=== PATIENT | male | born 1955 | race Caucasian/White ===

== ENCOUNTER 2018-03-29 06:50 | Observation (INO) ==
--- NOTE | 2018-03-24 17:18 | MH ---
cc: Maryuri See MD DATE OF ADMISSION: 03/29/2018 DATE OF ADMISSION: 03/29/2018 ADMITTING DIAGNOSIS: Osteoarthritic degeneration, right knee, now being admitted for right total knee arthroplasty. HISTORY OF PRESENT ILLNESS: This pleasant 64-year-old male is being admitted today for right total knee arthroplasty due to severe painful osteoarthritic degeneration of the right knee. PAST MEDICAL HISTORY: The patient has a history of back pain and essential hypertension. CURRENT MEDICATIONS: 1. Amlodipine. 2. Baclofen. 3. Diclofenac, stop before surgery. 4. Lasix. 5. Methotrexate. PAST SURGICAL HISTORY: Hernia repair, appendectomy, arthroscopic surgery of right knee. REVIEW OF SYSTEMS: Noncontributory. FAMILY HISTORY: Noncontributory. SOCIAL HISTORY: Does not smoke or drink. ALLERGIES: NO KNOWN ALLERGIES. PHYSICAL EXAMINATION: GENERAL: A 64-year-old male, well-developed, well-nourished, alert and oriented x3, complaining of pain in his right knee. VITAL SIGNS: Blood pressure 126/78, pulse 90 and regular, respirations 18, temperature 98.2, pulse oximetry 98% on room air. EYES: PERRL, EOMI. Ears, nose, mouth clear. NECK: Supple. LUNGS: Clear. HEART: Regular rate. ABDOMEN: Soft, positive bowel sounds, nontender. EXTREMITIES: Reveal the right knee be tender with crepitance on range of motion. He is neurovascularly intact to his toes. IMPRESSION: Severe painful osteoarthritic degeneration, right knee. PLAN: Admission for right total knee arthroplasty today. The patient was given prescription for postoperative pain and anticoagulation control. Plans on going home after surgical stay in the hospital. He did have an injection of hannah freezing nerve block done in the office today. MD PHONG Frias/vale , 04:06 PM , 04:12 PM
[2018-03-29] MEDS ORDERED: Metoprolol Tartrate 25 MG Tablet PO SCH (07:25)
[2018-03-29] MEDS ORDERED: Chlorhexidine Gluconate 2% 1 Pack (2 Cloths) TOPICAL SCH (07:25)
[2018-03-29] MEDS ORDERED: Chlorhexidine 4% Topical 120 APPLIC/120 ML Bottle TOPICAL SCH (07:30)
[2018-03-29] MEDS ORDERED: Vancomycin Inj 1,000 MG in Sodium Chlor 0.9% Inj 250 ML IV.SIG SCH (08:00)
[2018-03-29] MEDS ORDERED: Sodium Chlor 0.9% Inj 500 ML IV.SIG SCH (08:00)
[2018-03-29] MEDS ORDERED: ceFAZolin 2 GM Premix Inj 2 GM/50 ML PIGGYBACK IV.SIG SCH (08:00)
[2018-03-29] MEDS ORDERED: TRANEXAMIC ACID IV.SIG SCH (09:00)
[2018-03-29] MEDS ORDERED: Sodium Chlor 0.9% Inj 80 ML, Bupivacaine Liposo PF 1.3% Inj 20 ML, Bupivacaine 0.25% In... P-ARTICULR SCH ×3 (09:00)
[2018-03-29] MEDS ORDERED: SODIUM CHLOR 0.9% IV.SIG SCH (09:00)
[2018-03-29] MEDS ORDERED: Post-op Orders (for Pharmacy) OTHER STA (09:25)
[2018-03-29] MEDS ORDERED: Bisacodyl 10 MG Supp RECTAL PRN (09:25)
[2018-03-29] MEDS ORDERED: Lidocaine PF 1% Inj 5 ML Syringe OTHER ONE (10:09)
[2018-03-29] MEDS ORDERED: Phenylephrine/NS 1000 MCG/10ML Syringe IV.PUSH ONE (10:09)
[2018-03-29] MEDS ORDERED: ceFAZolin 2 GM Premix Inj 2 GM/50 ML PIGGYBACK IV.SIG ONE (11:30)
[2018-03-29] MEDS ORDERED: Tranexamic Acid Inj 1,000 MG in Sodium Chlor 0.9% Inj 100 ML IV.SIG SCH (12:00)
[2018-03-29] MEDS ORDERED: fentaNYL Citrate Inj 100 MCG/2 ML Ampul ONE (13:06)
--- NOTE | 2018-03-29 13:27 | MP ---
cc: Maryuri See MD DATE OF OPERATION: 03/29/2018 PREOPERATIVE DIAGNOSIS: Severe osteoarthritic degeneration, right knee. POSTOPERATIVE DIAGNOSIS: Severe osteoarthritic degeneration, right knee. PROCEDURE PERFORMED: Right total knee arthroplasty using Consensus components, size 5 femur, 4 tibia, 10 insert and size 2 patella with 2 batches of antibiotic cement. SURGEON: Maryuri See MD FARM WORKER: JOSETTE Guerrero ANESTHESIA: General intubation and block. DESCRIPTION OF PROCEDURE: After successful induction of anesthesia, the patient is placed on the operating room table in the supine position. The knee is prepped and draped in the usual manner. A tourniquet is inflated at the upper thigh and set to 300 mmHg pressure after exsanguination of the lower extremity. A longitudinal incision is made extending from 3 inches proximal to the superior pole of the patella, across the patella in longitudinal fashion, and down past the insertion of the tibial tubercle into the proximal tibia. The incision is carried down through subcutaneous tissue along the medial aspect of the patella and retinaculum, down through the capsule to expose the knee joint. The patella and patellar tendon are freed up enough to allow the patella to be inverted and retracted off the lateral side of the knee joint. The knee joint is left exposed. Small osteophytes are removed. All soft tissue is removed to allow proper position of the femoral and tibial cutting jig guide. The first femoral jig is then inserted along the distal end of the femur after first measuring to decide whether this is a small, medium, or large component. The notch is then drilled and the tibial cutting guide inserted into the femoral cutting guide, along with the ankle brace to allow for proper measurement of the tibial cutting surface that needed to be resected. Pins are inserted into the tibial cutting jig and femoral cutting jig to hold them in place. An oscillating saw is then used to resect the surface of the tibia. The surface of the tibia is then completely removed using sharp and blunt dissection. The anterior and posterior cuts of the femur are then made as well using an oscillating saw through the cutting guide. All guides are then removed and the varus/valgus angulation cutting guide applied to the femur for proper measurement of the proper amount of valgus. The anterior cutting guide for the femur is then inserted at the anterior femoral cuts made. Next, the first block trial is inserted into the femur to allow for proper condyle drill holes to be made which are then made followed by removal of the bone between the condyles using an oscillating saw as well as the bone removed at the most posterior surface of the condyle. After this, this guide is removed and the chamfer cuts made using the chamfer cutting guide from both anterior and posterior. Next, the femoral trial is then inserted, the tibial surface reflected anterior to expose the tibial surface and a tibial stem guide is inserted after first measuring for a standard, standard plus, large, or large plus surface to be used. After the stem is impacted the trial tibial surface is applied followed by the trial meniscal components. After full range of motion is found with the appropriate length meniscal components varying the patella is prepared by resecting the posterior aspect of the patella using an oscillating saw, inserting a trial. The trial is then removed and the cruciate cutting guide applied using the bur to cut the cruciate cuts. After cruciate cuts are made all trials are removed. The wound is irrigated copiously with antibiotic solution and Water Pik and the actual components inserted into place using the aforementioned components. After the cement has hardened and the components are found to have full range of motion with no instability, the tourniquet is deflated, total tourniquet time being 50 minutes at 300 mmHg pressure. The wound again is irrigated copiously with antibiotic solution, meticulous hemostasis achieved using a batch of FloSeal with thrombin The deep fascia approximated with running #0 Quill and the subcutaneous tissue approximated using interrupted running 2-0 and 3-0 Quill and Prineo dressing. No drain utilized. ESTIMATED BLOOD LOSS: 200 mL. COUNTS: Sponge and suture counts were correct. COMPONENTS: The components used were Consensus components, size 5 femur, 4 tibia, 10 insert and size 2 patella with 2 batches of antibiotic cement. The patient tolerated the procedure well and left the operating room in stable condition. JOSETTE Guerrero, was present throughout the procedure to include patient positioning as well as the procedure. The medical necessity of the nurse practitioner was indicated in this case due to the surgical complexity of the case itself. During the case, the medical or surgical instrument maker was working the back table while my surgical assist OUTSIDE SALES INSPECTOR was directly assisting me. J. MD PHONG Ramsay/jl , 12:30 PM , 12:38 PM
[2018-03-29] MEDS ORDERED: *morphine SULFATE 8 MG/ML PERIprocedure ONLY ONE ×2 (13:28→13:57)
--- NOTE | 2018-03-29 14:07 | XR ---
EXAM DATE: 03/29/2018 1:52 PM EST AGE/SEX: 63 years / Male INDICATIONS: Post op right knee. CLINICAL DATA: This is the patient's initial encounter. Patient reports that signs and symptoms have been present for 1 day and indicates a pain score of Nonresponsive. MEDICAL/SURGICAL HISTORY: None. None. COMPARISON: No prior exams available for comparison. FINDINGS: Views of the right knee are obtained. Postsurgical changes with right knee arthroplasty. Screws seen traversing the proximal tibia. No hardware loosening or fracture. Postsurgical changes. CONCLUSION: Right knee arthroplasty. Electronically signed by: Chalino Eng MD 03/29/2018 2:05 PM EST
--- NOTE | 2018-03-29 16:39 | P.BOP ---
- Preoperative Diagnosis (1) Osteoarthritis of right knee - Postoperative Diagnosis (1) Status post total right knee replacement using cement Date of procedure: 03/29/18 Procedure: Right Total knee Arthroplasty Implants: see implant record Anesthesia: GETA Surgeon: Faith See MD Flexible Nanny: Zainab Charles Estimated blood loss (mL): 200 Tourniquet time (min): 52 Urine output (mL): 0 (no jara) Pathology: none sent Condition: stable Disposition: PACU
[2018-03-29] MEDS: ceFAZolin 1 GM Premix Inj 1 GM/50 ML FROZ.PIGGY IV.SIG SCH ×2 (18:20→23:22)
[2018-03-29] MEDS ORDERED: TIMOLOL EACH EYE SCH (21:00)
[2018-03-29] MEDS ORDERED: BRIMONIDINE EACH EYE SCH (21:00)
[2018-03-29] MEDS: Senna/Docusate Sodium 8.6/50 MG Tablet PO SCH (21:01)
[2018-03-29] MEDS: Multivitamin/Minerals Therapeutic Tablet PO SCH (21:02)
[2018-03-30] MEDS: Morphine Inj 4 MG/ML Vial IV.PUSH PRN ×3 (02:05→20:39)
[2018-03-30] MEDS: ceFAZolin 1 GM Premix Inj 1 GM/50 ML FROZ.PIGGY IV.SIG SCH (04:48)
[2018-03-30 08:10] LABS: Hematocrit 35.7 % (39.0-51.0); Hemoglobin 12.2 gm/dL (13.0-17.0)
--- NOTE | 2018-03-30 08:26 | P.PNOP ---
Subjective Interval history: Patient complaining of burning pain about lateral side of kneecap. Physical Exam Vital signs: Vital Signs 03/29/18 09:36 03/29/18 13:01 03/29/18 13:15 Temperature 97.5 F L Pulse Rate 63 79 84 Respiratory Rate 18 15 14 Blood Pressure 117/65 108/52 L 116/56 L Pulse Oximetry 100 93 L 96 03/29/18 13:30 03/29/18 13:45 03/29/18 14:00 Temperature Pulse Rate 78 78 78 Respiratory Rate 15 12 14 Blood Pressure 107/53 L 104/55 L 105/58 L Pulse Oximetry 98 99 93 L 03/29/18 14:30 03/29/18 15:05 03/29/18 20:00 Temperature 98.6 F 97.2 F L Pulse Rate 75 74 73 Respiratory Rate 12 16 18 Blood Pressure 106/55 L 105/53 L 138/72 Pulse Oximetry 97 96 99 03/30/18 00:00 03/30/18 01:00 03/30/18 04:00 Temperature 97.9 F 98.9 F Pulse Rate 82 83 Respiratory Rate 17 17 18 Blood Pressure 143/68 H 153/68 H Pulse Oximetry 98 98 Intake & Output 03/29/18 03/30/18 03/30/18 18:59 06:59 18:59 Intake Total 1971.79 / 1971.79 1100 / 1100 Output Total 800 / 800 1450 / 1450 Balance 1171.79 / 1171.79 -350 / -350 Weight 117.9 kg 136.2 kg Intake: IV 571.79 / 571.79 1100 / 1100 LR 1000 mL Inj 1,000 ML @ 80 1000 / 1000 mls/hr IV.CONT .[id number] [facility] Rx# :[id number] Cyklokapron Inj 1,000 MG In NS 221.79 / 221.79 Inj 100 ML @ 200 mls/hr IV.SIG ONCE [facility] Rx#:[id number] Vancomycin Inj 1,000 MG In NS 250 / 250 Inj 250 ML @ 250 mls/hr IV.SIG CLINICAL EDITOR [facility] Rx#:[id number] Ancef 1 GM Premix Inj 1 gm In 50 / 50 100 / 100 50 ml @ 100 mls/hr IV.SIG Q6H [facility] Rx#:[id number] Ancef 2 GM Premix Inj 2 gm In 50 / 50 50 ml @ 100 mls/hr IV.SIG CLINICAL EDITOR [facility] Rx#:[id number] Anesthesia Amount 1400 / 1400 Output: Urine 600 / 600 1450 / 1450 Estimated Blood Loss 200 / 200 Other: Date of Last Bowel Movement 03/29/18 03/29/18 Weight On Admission 117.9 kg - Constitutional no acute distress Results - Labs CBC & Chem 7: 03/30/18 06:24 Laboratory Results - last 24 hr 03/30/18 06:24 Hgb 12.2 L Hct 35.7 L - Imaging Impressions Knee X-Ray 03/29/18 09:26 CONCLUSION: Right knee arthroplasty. Assessment and Plan - Attending Attestation Attending Attestation: Dressing dry and intact. NV intact to toes. No calf tenderness. Plan for OOB with PT. Eventual home with C and PT in next day or two.
[2018-03-30] MEDS: amLODIPine 10 MG Tablet PO SCH (08:45)
[2018-03-30] MEDS: Senna/Docusate Sodium 8.6/50 MG Tablet PO SCH ×2 (08:45→20:38)
[2018-03-30] MEDS: Multivitamin/Minerals Therapeutic Tablet PO SCH ×2 (09:00→20:38)
[2018-03-30] MEDS ORDERED: [UNRECOGNIZED DRUG - OTHER] PO SCH (09:00)
[2018-03-30] MEDS ORDERED: MV MN FA VIT K LYCOP LUT COQ10 PO SCH (09:00)
[2018-03-31 05:54] LABS: Hematocrit 32.4 % (39.0-51.0); Hemoglobin 11.3 gm/dL (13.0-17.0)
--- NOTE | 2018-03-31 08:36 | P.DCO ---
- Physical Therapy Order: Evaluate and treat, Improve ambulation, Strength and gait training - Home Health Nursing Order: Medical education - Case Management Consult Yes - Certification I have seen patient Hernandez Barryrylie ALLISON on 03/31/18. My clinical findings support the need for the requested home health care services because: Limited ability to care for self, High risk of falls I certify that my clinical findings support that this patient is homebound because: Post-op weakness, Unsteady gait/balance
--- NOTE | 2018-03-31 08:38 | P.PNOP ---
Subjective Interval history: Pt complaining of burning pain when ice applied to knee. Physical Exam Vital signs: Vital Signs 03/30/18 12:00 03/30/18 15:56 03/30/18 20:00 Temperature 97.9 F 99.4 F 99 F Pulse Rate 75 79 104 H Respiratory Rate 18 18 20 Blood Pressure 132/69 146/66 H 144/68 H Pulse Oximetry 95 98 93 L 03/31/18 00:00 Temperature 99.5 F Pulse Rate 93 H Respiratory Rate 17 Blood Pressure 126/59 L Pulse Oximetry 94 L Intake & Output 03/30/18 03/31/18 03/31/18 18:59 06:59 18:59 Intake Total 720 / 720 Balance 720 / 720 Intake: Oral 720 / 720 Other: # Voids 4 3 Date of Last Bowel Movement 03/29/18 03/29/18 - Constitutional no acute distress Results - Labs CBC & Chem 7: 03/31/18 04:50 Laboratory Results - last 24 hr 03/31/18 04:50 Hgb 11.3 L Hct 32.4 L Assessment and Plan - Attending Attestation Attending Attestation: Wound clean and dry, Min swelling. NV intact Cont PT OOB home tomorrow.
[2018-03-31] MEDS: amLODIPine 10 MG Tablet PO SCH (10:08)
[2018-03-31] MEDS: Senna/Docusate Sodium 8.6/50 MG Tablet PO SCH ×2 (10:08→22:19)
[2018-03-31] MEDS: Multivitamin/Minerals Therapeutic Tablet PO SCH ×2 (10:11→22:20)
[2018-03-31] MEDS: Morphine Inj 4 MG/ML Vial IV.PUSH PRN ×2 (14:39→19:40)
[2018-04-01] MEDS: Morphine Inj 4 MG/ML Vial IV.PUSH PRN (01:43)
[2018-04-01 05:39] VITALS: PULSE 89; O2SAT 98
[2018-04-01] MEDS: Senna/Docusate Sodium 8.6/50 MG Tablet PO SCH (08:40)
[2018-04-01] MEDS: amLODIPine 10 MG Tablet PO SCH (08:40)
[2018-04-01] MEDS: Multivitamin/Minerals Therapeutic Tablet PO SCH (08:41)
[2018-04-01 10:58] VITALS: BP 127/59; RESP 24; TEMP 97.9
--- NOTE | 2018-04-01 11:26 | P.PNOP ---
Subjective Interval history: Patient much more comfortable today. Feels he is ready to be discharged home. Physical Exam Vital signs: Vital Signs 03/31/18 12:00 03/31/18 16:00 03/31/18 19:01 Temperature 97.9 F 99.0 F 98.9 F Pulse Rate 86 88 89 Respiratory Rate 14 14 18 Blood Pressure 148/71 H 134/63 146/64 H Pulse Oximetry 97 96 97 03/31/18 23:03 04/01/18 03:39 04/01/18 08:00 Temperature 98.9 F 97.4 F L 97.9 F Pulse Rate 93 H 89 89 Respiratory Rate 18 18 24 Blood Pressure 136/63 140/63 127/59 L Pulse Oximetry 95 98 98 Intake & Output 03/31/18 04/01/18 04/01/18 18:59 06:59 18:59 Intake Total 720 / 720 480 / 480 Balance 720 / 720 480 / 480 Weight 136.8 kg Intake: Oral 720 / 720 480 / 480 Other: # Voids 5 2 Date of Last Bowel Movement 03/29/18 03/29/18 # Bowel Movements 0 - Constitutional no acute distress Results - Labs CBC & Chem 7: 03/31/18 04:50 Assessment and Plan - Attending Attestation Attending Attestation: Sitting up in a chair. Neurovascularly intact to his toes. Wound is healing well with minimal swelling and minimal redness. There is no calf tenderness. Patient is ready for discharge to home with home health care today. Follow-up in the office next week.
--- NOTE | 2018-04-01 11:30 | P.PNOP ---
Subjective Interval history: Patient more comfortable today as far as her knee is concerned about her right shoulder still hurts. Physical Exam Vital signs: Vital Signs 03/31/18 12:00 03/31/18 16:00 03/31/18 19:01 Temperature 97.9 F 99.0 F 98.9 F Pulse Rate 86 88 89 Respiratory Rate 14 14 18 Blood Pressure 148/71 H 134/63 146/64 H Pulse Oximetry 97 96 97 03/31/18 23:03 04/01/18 03:39 04/01/18 08:00 Temperature 98.9 F 97.4 F L 97.9 F Pulse Rate 93 H 89 89 Respiratory Rate 18 18 24 Blood Pressure 136/63 140/63 127/59 L Pulse Oximetry 95 98 98 Intake & Output 03/31/18 04/01/18 04/01/18 18:59 06:59 18:59 Intake Total 720 / 720 480 / 480 Balance 720 / 720 480 / 480 Weight 136.8 kg Intake: Oral 720 / 720 480 / 480 Other: # Voids 5 2 Date of Last Bowel Movement 03/29/18 03/29/18 # Bowel Movements 0 - Constitutional no acute distress Results - Labs CBC & Chem 7: 03/31/18 04:50 Assessment and Plan - Attending Attestation Attending Attestation: Patient's right shoulder is tender with some limitation in motion. She is otherwise neurovascular intact to her fingers. Her right knee incision is healing well with no sign of inflammation or infection today. There is no calf tenderness and she has no evidence of DVT today. She is unable to fend for herself getting in and out of bed without assistance. He will be discharged today to [facility] for continuation of care and follow-up in the office in a week's time.
--- NOTE | 2018-04-01 13:10 | MD ---
cc: Maryuri See MD DATE OF DISCHARGE: 04/01/2018 DATE OF ADMISSION: 03/29/2018 DATE OF DISCHARGE: 04/01/2018 ADMITTING DIAGNOSIS: Osteoarthritic degeneration, right knee. DISCHARGE DIAGNOSIS: Osteoarthritic degeneration, right knee. DISCHARGE SUMMARY: This pleasant 63-year-old male was admitted on 03/29/2018 at which time he underwent a total knee arthroplasty. He received a course of prophylactic IV antibiotics and within 23 hours, started on anticoagulation therapy. Continued to improve, remaining afebrile. Vital signs stable, tolerating food and fluids well on p.o. pain medication and was discharged to home with home health care and physical therapy on 04/01/2018 in good condition with instructions for followup in the office the following week for recheck. Maryuri See MD JRNasrin/es , 11:37 AM , 11:42 AM
== END 2018-04-01 12:59 | disposition home health service (06) ==
LOC: HSDI 06:50 → HSDC 06:50 → N06 14:59
PROVIDERS: ADMIT Surgery; ATTEND Surgery